=== PATIENT | female | born 1975 | race Two or more races ===

== ENCOUNTER → 2024-03-29 | Outpatient (CLI) | payer MEDICARE, MEDICAID, SELFPAY ==
--- NOTE | 2024-03-29 15:49 | XR_ITS ---
Examination: Breast ultrasound complete, bilateral Date and time of exam: March 29, 2024 at 1559 hours INDICATIONS: Left breast pain beginning several months ago, right breast sonogram May 21, 2021 1:00 nodule right breast 17 mm 11:00 nodule left breast 11 mm Technique: Real-time grayscale ultrasonographic imaging bilateral breasts, including all 4 quadrants as well as nipple retroareolar and axillary regions. Findings: Sonographic images right breast 1:00 oval mass 2.2 x 1.5 cm probably benign lipoma Sonographic images left breast 4:00 cyst 5 x 5 mm 11:00 hyperechoic probable lipoma 13 x 14 mm IMPRESSION: BI-RADS Category 3: Probably benign findings Recommend 1 continued 6 month follow-up bilateral breast sonography to document stability of nodules described above
== END | disposition home or self-care (01) ==
LOC: CDIM 15:40
PROVIDERS: PCP Nurse Practitioner Family; Referring Provider Nurse Practitioner Family; Visit Provider Nurse Practitioner Family
DX: N63.12 Unspecified lump in the right breast, upper inner quadrant (principal); N60.02 Solitary cyst of left breast
CPT/HCPCS: 76641

== ENCOUNTER 2024-05-02 14:21 | Outpatient (AMB) | payer MEDICARE, MEDICAID, SELFPAY ==
[2024-05-02 14:33] VITALS: BP 113/78; PULSE 87; RESP 16; TEMP 36.4; O2SAT 97; BMI 30.5
--- NOTE | 2024-05-02 14:33 | AMB.GYNCLNOT ---
Vital Signs 05/02/24 14:33 Height 1.52 m Height Method Stated Weight 70.987 kg Weight Measurement Method Standing Scale BMI 30.5 BP 113/78 Blood Pressure Source Automatic Cuff Blood Pressure Location Left Upper Arm Position Sitting Respiration 16 Pulse 87 Pulse Source Monitor Temp 97.5 F Temp Source Oral Pulse Oximetry (%) 97 Oxygen Delivery Method Room Air Allergies/Home Meds Allergies & Medications Allergies morphine Adverse Reaction (Severe, Verified 05/02/24 14:35) HALLUCINATES Medication Reconciliation No Known Home Medications 05/02/24 [History Confirmed 05/02/24] Intake Visit Data Collection New Patient or Established: Established Patient (seen at [facility] within 3 years) Reason for Visit:: abnormal mammogram Seen by Clinical Staff ONLY (RN/MA): No Retort Load Expediter Required: Yes Retort Load Expediter's name/title: LENORA PALMER Do You Feel Safe at Home: Yes Authorities Contacted: N/A PCP or OBGYN visit in last 3 months: No Hx Now: Yes Are you currently on any form of Control: Yes Last menstrual period: 04/24/24 Pain Present Currently: Yes Pain Location: Breast (LEFT) Pain Scale Used: Watson-James/Numerical Pain scale:: 5 Smoking Status Smoking Status: Never smoker 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 1. Little interest or pleasure in doing things: not at all 2. Feeling down, depressed, or hopeless: not at all Total score: 0 PHQ-9 3. Trouble falling or staying asleep, or sleeping too much: Not at all 4. Feeling tired or having little energy: Not at all 5. Poor appetite or overeating: Not at all 6. Feeling bad about yourself - or that you are a failure or have let yourself or your family down: Not at all 7. Trouble concentrating on things, such as reading the newspaper or watching television: Not at all 8. Moving or speaking so slowly that other people could have noticed? - Or the opposite - being so fidgety or restless that you have been moving around a lot more than usual: not at all 9. Thoughts that you would be better off or of hurting yourself in some way: Not at all Total score: 0 Source: Developed by Drs. Kam Fleming, Olya Lubin, Elijah Israel and colleagues, with an educational artur from [employer]. Depression screen completed yes Social History Living Situation History Marital Status: Lives With: Family Housing: House Tobacco History Smoking Status: Never smoker Second Hand Smoke Exposure: No Alcohol History Alcohol Intake: Never Substance Use History Substance Use: NONE Domestic Abuse History Do You Feel Safe at Home: Yes Past Medical History Past Medical History Have you ever been diagnosed with any of the following: Neurological Problems Cerebrovascular Accident (CVA): No Transient Ischemic Attacks (TIA): No Dementia: No Alzheimer's Disease: No Parkinson's Disease: No Brain Tumor: No Meningitis: No Seizures: No Epilepsy: No Multiple Sclerosis: No Cerebral Palsy: No Amyotrophic Lateral Sclerosis (ALS/Valeria Gehrig's): No Guillain-[place] Syndrome: No Spina Bifida: No Paralysis: No Peripheral Neuropathy: No Boyce's Palsy: No Subdural Hematoma: No Migraine: No Head Trauma: No Spinal Cord Injury: No Traumatic Brain Injury: No Cardiology Problems Myocardial Infarction: No Cardiac Arrhythmia: No Atrial Fibrillation: No Angina: No Heart Murmur: No Coronary Artery Disease: No Atherosclerotic Heart Disease: No Peripheral Vascular Disease: No Hypercholesterolemia: No Aneurysm: No Congestive Heart Failure: No Congenital Heart Disease: No Valvular Heart Disease: No Rheumatic Fever: No Cardiomyopathy: No Edema: No Pericarditis: No Cellulitis: No Hypertension: Yes Hypotension: No Respiratory Problems Chronic Obstructive Pulmonary Disease (COPD): No Asthma: No Bronchitis: No Emphysema: No Pneumonia: No Pulmonary Fibrosis: No Tuberculosis: No Pulmonary Embolism: No Pulmonary Edema: No Hx Cough: No Cough: No Wheezing: No Chest Deformities: No Smoking: No Smoking Cessation Counseling: No Smoking Exposure: No Tobacco Use: No Exposure to Respiratory Irritants: No Stomache/Intestinal Problems Liver Cancer: No Hepatitis: No Cirrhosis: No Pancreatic Cancer: No Pancreatitis: No Celiac Disease: No Gall Bladder Disease: Yes Diverticulitis: No Diverticulosis: No Ulcer: No Colorectal Cancer: No Genital/Urinary Problems Chronic Kidney Disease: No Renal Disease: No Kidney Stones: No Polycystic Kidney Disease: No Neurogenic Bladder: No Inguinal Hernia: No Dialysis: No Prostate Cancer: No Benign Prostatic Hyperplasia: No Reproductive Problems Breast Cancer: Yes (AUNT) Genital Herpes: No Gonorrhea: No Pelvic Inflammatory Disease: No Polycystic Ovarian Syndrome: No Previous Pregnancies: Yes Syphilis: No Musculoskeletal Problems Muscular Dystrophy: No Myasthenia Gravis: No Marfan's Syndrome: No Bone Cancer: No Arthritis: No Rheumatoid Arthritis: No Osteoporosis: No Degenerative Disk Disease: No Gout: No Carpal Tunnel Syndrome: No Fibromyalgia: No Fractures: No Degenerative Joint Disease: No Osteomyelitis: No Head,Eye,Nose,Throat Problems Cataracts: No Glaucoma: No Blind: No Retinal Detachment: No Macular Degeneration: No Chronic Ear Infections: No Deafness: No Eye Prosthesis: No Endocrine Problems Diabetes Mellitus Type 1: No Diabetes Mellitus Type 2: Yes Hypoglycemia: No Peter's Syndrome: No Anatoliy's Disease: No Hyperthyroidism: No Hypothyroidism: No Thyroid Cancer: No Parathyroid Disease: No Syndrome of Inappropriate Antidiuretic Hormone: No Adrenal Disease: No Graves' Disease: No Blood Problems Anemia: No Leukemia: No Hemophilia: No Thalassemia: No Sickle Cell Disease: No Clotting Problems: No Psychologic Problems Schizophrenia: No Recreational Drug Use: No Bipolar Disorder: No Depression: No Anxiety: No Behavior Problems: No Post Traumatic Stress Disorder: No Eating Disorder: No Other Problems Hospitalization: No Autoimmune Disease: No Down Syndrome: No Autism: No Cosmetic Surgery: No Shingles: No Falls: No Blood Transfusion Reaction: No Anesthesia Reactions: No Surgical History Angioplasty: No Appendectomy: No Bariatric Surgery: No Breast Surgery: No Cancer Surgery: No Carotid Endarterectomy: No Cholecystectomy: Yes Colectomy: No Colostomy: No Total Knee Replacement: No Pacemaker: No Sinus Surgery: No Splenectomy: No TAHBSO-Total Abdominal Hysterectomy: No Thyroidectomy: No Ureter Stent: No History of Present Illness HPI Narrative 49-year-old female referred by her primary care provider for review of mammogram and breast ultrasound results. Patient had a breast ultrasound on 03/29/2024, which was BIRADS category 3. Findings include a right breast oval mass at 1 o'clock position, measuring 2.2 x 1.5 cm, probably benign lipoma. Left breast showed a 5 x 5 mm cyst at 4 o'clock and a 13 x 14 mm hyperechoic mass at 11 o'clock, probable lipoma. Prior mammogram on 12/11/2023 showed scattered areas of fibroglandular density and benign calcifications, with BIRADS category 0. Earlier mammogram on 06/25/2021 also showed benign areas of fibroglandular density and calcifications without suspicious masses. Breast ultrasound on 05/21/2021 had similar findings with BIRADS category 3. Patient reports left breast pain, described as cramping. The pain was initially intermittent but has been increasing in frequency and intensity. No nipple discharge reported. Review of Systems Review of Systems Systems Reviewed: All systems reviewed, normal except as documented Exam General Limitations: no limitations General Appearance: alert, in no apparent distress, comfortable, cooperative, healthy appearing, well developed and well groomed Head Head exam: atraumatic, normocephalic and normal inspection Neck Neck exam: Present normal inspection, full ROM and trachea midline Chest Chest inspection: Present normal inspection and symmetric chest wall rise Abdominal Abdominal exam: Present soft and normal bowel sounds Extremities Extremities exam: Present normal inspection and full ROM Back Back exam: Present normal inspection and full ROM Psych Psychiatric exam: Present normal affect and normal mood Skin Skin exam: Present warm, dry, intact and normal color Assessment & Plan Diagnosis / Problem List (1) Multiple cysts of breast: Status: Acute Plan: 49-year-old female referred for review of mammogram and breast ultrasound results. Recent breast ultrasound (03/29/2024) showed BIRADS category 3 findings, including a 2.2 x 1.5 cm oval mass in the right breast at 1 o'clock position, likely a benign lipoma. Left breast showed a 5 x 5 mm cyst at 4 o'clock and a 13 x 14 mm hyperechoic mass at 11 o'clock, probable lipoma. Previous mammograms (12/11/2023, 06/25/2021) and ultrasounds (05/21/2021) have shown similar findings with scattered areas of fibroglandular density and benign calcifications. The cysts have been present and stable for several years, which is reassuring for benign etiology. Patient reports left breast pain, described as cramping and increasing in frequency. - Continue monitoring with 6-month follow-up ultrasound as recommended by primary care physician - Lifestyle modifications for breast pain management: - Reduce caffeine and sugar intake - Wear supportive sports bra - Take ibuprofen as needed for pain - Provided reassurance regarding low cancer risk - Offered BRCA genetic testing if patient has strong family history (2-3 affected relatives) - Name of breast surgeon provided for potential referral if pain becomes bothersome and patient desires surgical intervention Office Procedures OB Clinic LOC & Office Proc's Nursing/Assessment Patient Status: Established Patient OB Clinic Nursing Assessment: Medication Reconciliation, Update PMH in EMR and Vital Signs OB Clinic Coordination of Care: Complex Care and Chronic Disease 1-5, Consent,records obtained, informed consent, Education Simp Pt/Fam, Results/Orders obtained and Staff clarify orders Established Patient Charge Established Patient Point Assignment: 90 Established Patient Point Charge: EP Level 3 (80-115)
== END 2024-05-02 14:43 | disposition home or self-care (01) ==
LOC: HODSOBC 14:21
PROVIDERS: PCP Nurse Practitioner Family; Referring Provider Nurse Practitioner Family; Supervising Provider Obstetrics & Gynecology; Visit Provider Obstetrics & Gynecology
DX: N60.02 Solitary cyst of left breast (principal); N63.22 Unspecified lump in the left breast, upper inner quadrant; N63.12 Unspecified lump in the right breast, upper inner quadrant
CPT/HCPCS: 99213; G0463